=== PATIENT | female | born 2000 | race Native Hawaiian/Other Pacific Islander ===

== ENCOUNTER 2020-10-24 18:46 | Emergency (ER) | payer BC ==
[~2020-10-24] VITALS: Ht 157.5 cm; Wt 57.6 kg
[2020-10-24 19:55] LABS: PLATELET COUNT 359 K/uL (152-353)
[2020-10-24 20:24] LABS: POTASSIUM 3.2 mmol/L (3.6-5.2)
[2020-10-24 23:41] LABS: PARTIAL THROMBOPLASTIN TIME 24.3 SECONDS (24.5-33.6)
[2020-10-25 00:23] VITALS: BP 106/57; TEMP 98.9
== END 2020-10-25 00:38 | disposition short-term general hospital (02) ==
LOC: ED 18:46
PROVIDERS: Hospitalist
DX: K35.890 Other acute appendicitis without perforation or gangrene (principal)
CPT/HCPCS: 36415; 80053; 81000; 81025; 82150; 83690; 85027; 85610; 85730; 87040; 96360; 96361; 96365; 96375; 99285; J0132; J1170; J1885; J2270; J2405; J2543; Q9963